=== PATIENT | female | born 1985 | race African-American/Black ===

== ENCOUNTER 2018-08-03 09:10 | Day surgery (SDC) | payer BC ==
[2018-07-26 12:48] LABS: APPEARANCE,URINE CLEAR; BILIRUBIN,URINE NEGATIVE (NEGATIVE); COLOR,URINE YELLOW; GLUCOSE, URINE NEGATIVE (NEGATIVE); KETONES,URINE NEGATIVE (NEGATIVE); LEUKOCYTE ESTERASE,URINE NEGATIVE (NEGATIVE); NITRITE,URINE NEGATIVE (NEGATIVE); PROTEIN,URINE NEGATIVE (NEGATIVE); URINE SPECIFIC GRAVITY 1.008; UROBILINOGEN,URINE NEGATIVE mg/dL (<2.0)
[2018-07-26 13:06] LABS: HEMATOCRIT 37.7 % (36.0-47.0); HEMOGLOBIN 12.8 g/dL (12.0-15.5); MEAN CORPUSCULAR HEMOGLOBIN 30.6 pg (27.0-33.4); MEAN CORPUSCULAR HGB CONC 33.9 g/dL (32.0-36.0); MEAN CORPUSCULAR VOLUME 90 fl (80-97); PLATELET COUNT 422 10^3/uL (150-450); RED BLOOD COUNT 4.18 10^6/uL (3.72-5.28); RED CELL DISTRIBUTION WIDTH 12.9 % (11.5-14.0); WHITE BLOOD COUNT 8.4 10^3/uL (4.0-10.5)
[~2018-08-03 09:10] MED LIST: BUPIVACAINE HCL 0.25 % INJ/PF (2.5 MG/1 ML) 30 ML VIAL ONE; LACTATED RINGERS 1000 ML IV PRN; LIDOCAINE 0.5% INJ-PF (5 MG/ML) 50 ML SDV SUBCUT PRN
[2018-08-03] MEDS ORDERED: SUCCINYLCHOLINE CHLORIDE INJ 200 MG/10 ML VIAL ONE (11:42)
[2018-08-03] MEDS ORDERED: KETOROLAC TROMETHAMINE 60 MG/2 ML SDV ONE (12:22)
[2018-08-03] MEDS ORDERED: LIDOCAINE 2% INJ-PF (20 MG/ML) 10 ML AMPUL ONE (12:22)
[2018-08-03] MEDS ORDERED: MIDAZOLAM 2 MG/2 ML INJ ONE (12:23)
[2018-08-03] MEDS ORDERED: DEXAMETHASONE SOD PHOSPHATE INJ 4 MG/1 ML VIAL ONE (12:23)
[2018-08-03] MEDS ORDERED: FENTANYL CITRATE INJ/PF 100 MCG/2 ML AMPUL ONE ×2 (12:23→12:24)
[2018-08-03] MEDS ORDERED: PROMETHAZINE HCL INJ 25 MG/1 ML VIAL ONE (12:23)
[2018-08-03] MEDS ORDERED: ONDANSETRON HCL INJ/PF 4 MG/2 ML SDV ONE (12:23)
[2018-08-03] MEDS ORDERED: PROPOFOL INJ 200 MG/20 ML VIAL IV ONE (12:24)
[2018-08-03] MEDS ORDERED: HYDROMORPHONE HCL INJ/PF 2 MG/ML AMPULE ONE (12:56)
[2018-08-03] MEDS ORDERED: ACETAMINOPHEN 1,000 MG/100 ML RTUPB IV ONE (12:56)
[2018-08-03] MEDS ORDERED: DIPHENHYDRAMINE HCL 50 MG/ML VIAL IV PRN (13:20)
[2018-08-03] MEDS ORDERED: MORPHINE SULFATE 10 MG/ML INJ IV PRN (13:20)
[2018-08-03] MEDS ORDERED: FENTANYL CITRATE INJ/PF 100 MCG/2 ML AMPUL IV PRN ×3 (13:20)
[2018-08-03] MEDS ORDERED: PROMETHAZINE HCL INJ 25 MG/1 ML VIAL IV PRN ×2 (13:20)
[2018-08-03] MEDS ORDERED: MEPERIDINE HCL/PF INJ 25 MG/1 ML DISP.SYRIN IV PRN (13:20)
--- NOTE | 2018-08-03 13:49 | Operative Report ---
Operative Report DATE OF SURGERY: 08/03/18 PREOPERATIVE DIAGNOSIS: 1. Multiparity. 2. Completed family status. 3. Kaila res permanent sterilization POSTOPERATIVE DIAGNOSIS: Same OPERATION: Laparoscopic bilateral partial salpingectomy SURGEON: CARMELINA CALLE ANESTHESIA: GA TISSUE REMOVED OR ALTERED: Bilateral partial tubes (fimbriated ends) COMPLICATIONS: None ESTIMATED BLOOD LOSS: 10 ml INTRAOPERATIVE FINDINGS: Normal uterus, bilateral tubes and ovaries PROCEDURE: The patient was taken to the operating room where general anesthesia was obtained without difficulty. The patient was then examined under anesthesia with findings as noted above with a small anteverted uterus and possible left adnexal mass. She was then placed in dorsal supine lithotomy position and prepped and draped in the normal sterile fashion. [place] speculum was then placed in the patient's vagina and the anterior lip of the cervix grasped with a single-tooth tenaculum. An acorn uterine manipulator was then advanced into the uterus to provide a means of manipulation of the uterus. The speculum and tenaculum were then removed from the patient's cervix and vagina. Attention was then turned to the patient's abdomen where a 5 mm vertical incision was made in the umbilicus. The Optiview trocar with 0 laparoscope was then advanced without difficulty under direct visualization with the Optiview trocar. This was performed while tenting the abdominal wall and these will fashion. Intraperitoneal placement was confirmed by the direct visualization. Pneumoperitoneum was then obtained with approximately 4 L carbon dioxide gas. Survey of the patient's abdomen and pelvis revealed normal anatomy. No adhesions were noted. A second skin incision was then made approximately 3 cm superior 4 cm medial to the anterior superior iliac spine on the left and then a third skin incision was made approximately 3 cm superior to the lower incision. These incisions were made under direct visualization with the laparoscope. The second and third trochars were then advanced under direct visualization of the laparoscope at the sites. The right fallopian tube was then identified and followed out to the fimbriated end. A PDS Endoloop was then placed on the tube, removing the fimbriated end of the tube. Laparoscopic scissors were used to transect the tube and hemostasis was noted. The transected was then passed off to the OR tech. Hemostasis noted. The same procedure was performed on the left fallopian tube and hemostasis was noted. The partial tube was also passed off to the OR tech. All operative sites were visualized and noted to be hemostatic. CO2 gas was then turned off. The trochars were removed under direct visualization. The skin at all trocar sites were closed with 4-0 Vicryl in a subcuticular fashion with overlying Dermabond. No antibiotics were indicated for this procedure. After completion of skin closure of the trocar sites attention was then turned to the vagina where the acorn uterine manipulator was removed and the bivalve speculum was replaced. There was a small amount of bleeding from the right tenaculum site. Monsel solution was applied was applied to the tenaculum sites for hemostasis and the speculum was removed. Sponge, lap needle and instrument counts were correct 3. The patient tolerated the procedure well and was taken to the recovery area awake and in stable condition.
[2018-08-03] MEDS ORDERED: OXYCODONE-ACETAMINOPHEN 5-325 MG TABLET PO PRN ×2 (15:13)
[2018-08-03] MEDS ORDERED: IBUPROFEN 800 MG TABLET PO PRN (15:13)
[2018-08-03] MEDS ORDERED: OXYCODONE-ACETAMINOPHEN 5-325 MG TABLET ONE (15:20)
[2018-08-03] MEDS ORDERED: OXYCODONE-ACETAMINOPHEN 5-325 MG TABLET PO ONE (15:20)
[2018-08-03 16:25] VITALS: BP 107/74
== END 2018-08-03 16:30 | disposition home or self-care (01) ==
LOC: OROUT 09:10
PROVIDERS: ATTEND Obstetrics & Gynecology
DX: Z30.2 Encounter for sterilization (principal)
CPT/HCPCS: 36415; 85027; 81005; 81025; 88302 ×2; 58661; J2250; J1100; J1885; J3010; J2550; J0330; J2405; J2704; J3490; J0131; 851; J1170